=== PATIENT | male | born 1945 ===

== ENCOUNTER 2017-06-14 05:16 | Day surgery (SDC) | payer MEDICARE, MEDICAID ==
--- NOTE | 2017-06-13 17:19 | Pre-Procedure Note/Attestation ---
Pre-Procedure Note/Attestation Complete Prior to Procedure Planned Procedure: right Procedure Narrative: 1. CATARACT EXTRACTION WITH PHACO AND PC IOL IMPLANTATION, RIGHT EYE. 2. LIMBAL RELAXING INCISION, RIGHT EYE 3.MALYUGIN RING INSERTION, RIGHT EYE FOR FLOPPY IRIS SYNDROME. 4.COMPLEX CATARACT , RIGHT EYE Indications for Procedure Pre-Operative Diagnosis: 1. CATARACT ,RIGHT EYE. 2. ASTIGMATISM, RIGHT EYE. 3. FLOPPY IRIS SYNDROME, RIGHT EYE 4. COMPLEX CATARACT , RIGHT EYE. Attestation I attest that I discussed the nature of the procedure; its benefits; risks and complications; and alternatives (and the risks and benefits of such alternatives ), prior to the procedure, with the patient (or the patient's legal outside energy sales representatives). I attest that, if there was a reasonable possibility of needing a blood transfusion, the patient (or the patient's legal outside energy sales representatives) was given the [facility] standardized written summary, pursuant to the Mike David Blood Safety Act ([place] Health and Safety Code # 1645, as amended). I attest that I re-evaluated the patient just prior to the surgery and that there has been no change in the patient's H&P, except as documented below: MIRIAM PEOPLES Jun 13, 2017 17:19
[2017-06-14] VITALS (11 sets, daily range): BP systolic 125–150; BP diastolic 60–73
[~2017-06-14] VITALS: Ht 172.7 cm; Wt 99.8 kg
[~2017-06-14 05:16] MED LIST: ASPIR 8181 MG ORAL; ATORVASTATIN CA10 MG ORAL; HYTRIN5 MG PO; LOSARTAN POTASS50 MG ORAL; SERTRALINE HCL25 MG ORAL; TAMSULOSIN HCL0.4 MG ORAL
[2017-06-14] MEDS ORDERED: Vigamox Opth Soln 3ml ONE (05:29)
[2017-06-14] MEDS ORDERED: Phenylephrine 10% Opth Soln 5ml ONE (05:29)
[2017-06-14] MEDS ORDERED: Ketorolac Tromethamine Opth 5ml Soln ONE (05:29)
[2017-06-14] MEDS ORDERED: Tropicamide 1% Opth 15ml Soln ONE (05:29)
[2017-06-14] MEDS ORDERED: Akten 3.5% 1ml Btl ONE (05:29)
[2017-06-14] MEDS: Ketorolac Tromethamine Opth 5ml Soln RIGHT EYE SCH ×3 (05:52→06:28)
[2017-06-14] MEDS: Vigamox Opth Soln 3ml RIGHT EYE SCH ×3 (05:53→06:28)
[2017-06-14] MEDS: Tropicamide 1% Opth 15ml Soln RIGHT EYE SCH ×3 (05:53→06:27)
[2017-06-14] MEDS: Akten 3.5% 1ml Btl RIGHT EYE SCH ×3 (05:53→06:28)
[2017-06-14] MEDS: Phenylephrine 10% Opth Soln 5ml RIGHT EYE SCH ×3 (05:53→06:28)
[2017-06-14] MEDS ORDERED: acetaZOLAMIDE 125mg tab ORAL ONE (06:00)
[2017-06-14] MEDS ORDERED: NS Irrig 1000ml ONE (07:00)
[2017-06-14] MEDS ORDERED: fentaNYL 100 mcg/2 mL IV ONE (07:00)
[2017-06-14] MEDS ORDERED: Propofol 200mg/20ml IV ONE (07:00)
[2017-06-14] MEDS ORDERED: LR 1000ml ONE (07:00)
[2017-06-14] MEDS ORDERED: Sterile Water Irrig 1000ml IRRIG ONE (07:00)
[2017-06-14] MEDS ORDERED: Midazolam 2mg/2ml Inj ONE (07:00)
[2017-06-14] MEDS ORDERED: BSS 500ml btl ONE (07:02)
[2017-06-14] MEDS ORDERED: Tetracaine 0.5% Opth 4ml Soln ONE (07:02)
[2017-06-14] MEDS ORDERED: Lidocaine 1% MPF 10mg/ml 5ml ONE (07:02)
[2017-06-14] MEDS ORDERED: Dexamethasone 4mg/ml vial ONE (07:02)
[2017-06-14] MEDS ORDERED: Sodium Hyaluronate 10 mg/ml 0.85ml ONE (07:03)
[2017-06-14] MEDS ORDERED: Carbachol 0.01% Op Soln 1.5ml vial ONE (07:03)
[2017-06-14] MEDS ORDERED: BSS 15ml BTL ONE (07:03)
[2017-06-14] MEDS ORDERED: EPINEPHrine 1mg/1ml Amp ONE (07:03)
[2017-06-14] MEDS ORDERED: Povidone-Iodine 5% opth solution ONE (07:03)
[2017-06-14] MEDS ORDERED: LR 1000ml 1,000 ML IVLG SCH (07:53)
--- NOTE | 2017-06-14 07:53 | Anethesia Preoperative Eval ---
Anesthesia Pre-op PMH/ROS General Date of Evaluation: Jun 14, 2017 Time of Evaluation: 07:20 Anesthesiologist: Reena ASA Score: ASA 2 Mallampati Score Class I : Soft palate, uvula, fauces, pillars visible Class II: Soft palate, uvula, fauces visible Class III: Soft palate, base of uvula visible Class IV: Only hard plate visible Mallampati Classification: Class II Surgeon: Gino Diagnosis: R eye cataract Surgical Procedure: R eye catarat extraction Anesthesia History: none Family History: no anesthesia problems Allergies: Coded Allergies: No Known Allergies (Unverified , 06/13/17) Medications: see eMAR Past Medical History Cardiovascular: Reports: HTN, Denies: CAD, [place], valve dz, arrhythmia, other Pulmonary: Denies: asthma, COPD, [place]ESM[place], other Gastrointestinal/Genitourinary: Reports: GERD, other - BPH, Denies: CRI, ESRD Neurologic/Psychiatric: Reports: depression/anxiety, Denies: dementia, CVA, TIA, other Endocrine: Denies: DM, hypothyroidism, steroids, other HEENT: Reports: cataract (L), cataract (R), Denies: glaucoma, [place] (L), [place] (R), other Hematology/Immune: Denies: anemia, DVT, bleeding disorder, other Musculoskeletal/Integumentary: Reports: DJD, Denies: OA, RA, DDD, edema, other Other: obesity PMH Narrative: as above PSxH Narrative: Hemorrhoids, cholecystectomy, L knee arthroplasty Anesthesia Pre-op Phys. Exam Physician Exam Last Vital Signs Date Time Temp Pulse Resp B/P (MAP) Pulse Ox O2 Delivery O2 Flow Rate FiO2 06/14/17 06:33 97.9 63 18 144/73 97 Room Air Constitutional: NAD Neurologic: CN 2-12 intact Cardiovascular: RRR, no M/R/G Respiratory: CTA Gastrointestinal: S/NT/ND Airway Exam Mallampati Score: Class II MO: full Neck: stiff ROM: limited Teeth: missing Dentures: no upper, no lower Anesthesia Pre-op A/P Labs See chart Studies Pre-op Studies: EKG - NSR Risk Assessment & Plan Assessment: ASA 2 Plan: MAC Status Change Before Surgery: No Pre-Antibiotics Drug: none PATEL GALLEGOS M.D. Jun 14, 2017 07:52
[2017-06-14] MEDS ORDERED: fentaNYL 100 mcg/2 mL IV PRN (08:00)
[2017-06-14] MEDS ORDERED: DiphenhydrAMINE 50mg/ml Inj IVP PRN (08:00)
--- NOTE | 2017-06-14 08:33 | Discharge Summary ---
Discharge Summary Discharge Summary Discharge Summary DATE OF ADMISSION: 06/14/2017 DATE OF DISCHARGE: 06/14/2017 REASON FOR HOSPITALIZATION: 1- cataract right eye 2- Floppy Iris syndrome 3- Complex cataract, right eye SURGERY PERFORMED: 1- Cataract extraction, right eye 2- Malyugin ring insertion , right eye 3- Complex cataract removal, right eye CONDITION IN THE HOSPITAL:The patient tolerated the surgery without complications. DISCHARGE CONDITION: The patient was stable at discharge. DISCHARGE MEDICATIONS: 1. Vigamox eye drops one drop q.i.d, OD 2. Prednisolone one drop q.i.d, OD 3. Acular drop qid, OD POSTOPERATIVE ORDERS: The patient has to rest at home. No bending, No lifting, No watching Television tonight. POSTOPERATIVE FOLLOW UP: The patient will be followed in my office tomorrow morning at 7 o'clock. MIRIAM PEOPLES Jun 14, 2017 08:33
--- NOTE | 2017-06-14 08:36 | Brief Operative Note ---
Immediate Post Operative Note Operative Note Chief Complaint: Blurry vision, right eye, difficulty driving and reading, rght eye Pre-op Diagnosis: 1. CATARACT ,RIGHT EYE. 2. ASTIGMATISM, RIGHT EYE. 3. FLOPPY IRIS SYNDROME, RIGHT EYE 4. COMPLEX CATARACT , RIGHT EYE. Procedure: 1- cataract extraction with phaco and PC IOL implantation, right eye 2- Malyugin ring insertion for treatment floppy iris syndrome 3- Complex Cataract removal, right eye Post-op Diagnosis: same as pre-op Surgeon: Miriam Christian MD. Thread Singer: None Additional Surgeons: None Anesthesiologist: DR. Valles Anesthesia: MAC Specimen: none Complications: none Condition: stable Fluids: 500ml Estimated Blood Loss: none Drains: none Implant(s) used?: Yes - Monofocal PC IOL implanted in the right eye without complication MIRIAM CHRISTIAN Jun 14, 2017 08:36
--- NOTE | 2017-06-14 09:00 | Immediate Post-Op Evaluation ---
Immediate Post-Op Evalulation Immediate Post-Op Evalulation Procedure: R eye cataract extration with IOL Date of Evaluation: Jun 14, 2017 Time of Evaluation: 08:32 IV Fluids: 300 Blood Products: none Estimated Blood Loss: none Urinary Output: none Blood Pressure Systolic: 132 Blood Pressure Diastolic: 64 Pulse Rate: 68 Respiratory Rate: 20 O2 Sat by Pulse Oximetry: 99 Temperature (Fahrenheit): 97.6 Pain Score (1-10): 1 Nausea: No Vomiting: No Complications none Patient Status: awake, patent, none Hydration Status: adequate PATEL GALLEGOS M.D. Jun 14, 2017 09:00
--- NOTE | 2017-06-14 15:02 | 48 Hour Post Anesthesia Eval ---
Post Anesthesia Evaluation Procedure: R eye cataract extration with IOL Date of Evaluation: Jun 14, 2017 Time of Evaluation: 12:30 Blood Pressure Systolic: 148 0: 73 Pulse Rate: 72 Respiratory Rate: 20 Temperature (Fahrenheit): 97.6 O2 Sat by Pulse Oximetry: 98 Airway: patent Nausea: No Vomiting: No Pain Intensity: 1 Hydration Status: adequate Cardiopulmonary Status: stable Mental Status/LOC: patient returned to baseline Follow-up Care/Observations: n/a Post-Anesthesia Complications: none Follow-up care needed: ready to discharge PATEL GALLEGOS M.D. Jun 14, 2017 15:02
--- NOTE | 2017-06-15 05:45 | Operative Note - Dictated ---
DATE OF OPERATION: 06/14/2017 FACILITY: [facility]. SURGEON: Dionisio Christian M.D. LIABILITY CLAIMS EXAMINER: None. ANESTHESIOLOGIST: Dayron Valles M.D. ANESTHESIA: Monitored anesthesia care (MAC). PREOPERATIVE DIAGNOSES: 1. Cataract, right eye. 2. Floppy iris syndrome. 3. Complex cataract. 4. Astigmatism. POSTOPERATIVE DIAGNOSES: 1. Cataract, right eye. 2. Floppy iris syndrome. 3. Complex cataract. 4. Astigmatism. SURGERY PERFORMED: 1. Cataract extraction in the right eye. 2. Insertion of Malyugin ring for treatment of floppy iris syndrome. 3. Limbal relaxing incision (LRI) in the right eye. 4. Complex cataract removal. INDICATION FOR SURGERY: The patient is a 71-year-old gentleman with history of hypertension, hypercholesterolemia, and benign prostatic hypertrophy. The patient is taking Flomax, simvastatin, and medication for high blood pressure, which is named losartan and aspirin. He is complaining of blurred vision in the right eye. He is not allergic to any medication. He is not a drinker or a smoker. On examination of the right eye, the cornea is clear. Anterior chamber is clean and quiet. Pupillary reflex is normal. There is no RAPD. There is 4+ nuclear scleroses and 2+ cortical cataract. Funduscopy shows normal macula, normal optic disk, and periphery retina is flat. To improve his vision in the right eye, the cataract has to be removed and posterior chamber intraocular lens has to be implanted. INFORMED CONSENT: The nature of the surgery, risks, benefits, alternatives, and potential complications were explained in detail to the patient. The potential complications including, but not limited to bleeding, infection, posterior capsular rupture, lens subluxation, flat anterior chamber, iris prolapse, uveitis, wound leakage, corneal edema, macular edema, endophthalmitis, retinal detachment, loss of vision, and even loss of the eye were all explained in detail to the patient. The alternatives including accommodating lens, multifocal lens, toric lens, and conventional cataract surgery with limbal relaxing incision (LRI) for treatment of astigmatism all were explained in detail to the patient, who voiced understanding. The patient elected to have only conventional cataract surgery with limbal relaxing incision for treatment of astigmatism. Then, he signed the consent form, which is in the chart. DESCRIPTION OF SURGERY AND FINDINGS: Following that, the patient was taken to the operation room in stable condition. Lidocaine gel, Akten 3.5% were applied to the conjunctiva of the right eye. IV sedation was given by the anesthesiologist, Dr. Valles. After adequate anesthesia and sedation had been achieved, the right eye was prepped and draped in the sterile fashion for intraocular surgery. Before the patient was taken to the operation room, the cornea was marked at 180 and 90 meridian. In the operation room, using a corneal marker and marking pen, the steep meridian of the cornea was marked. Following that, using a kizzy knife with 600 blade, two parallel incisions were placed on the steep meridian of the cornea for treatment of astigmatism. Following that, using a Super Sharp knife, a clear corneal side port was created. A 1% lidocaine without preservative (MPF) was injected into the anterior chamber. Viscoelastic agent, Healon was injected into the anterior chamber. Following that, using a 2.8 mm keratome, temporal clear corneal keratotomy was performed. Viscoelastic agent, Healon was injected into the anterior chamber again. Following that, a Malyugin ring was inserted into the anterior chamber and coils of the Malyugin ring was engaged with sphincter of the pupil. A kizzy shaped space was created for safe phacoemulsification. Following that, VisionBlue was injected under viscoelastic agent to stain the capsule of the crystalline lens. Following that, a clear fresh viscoelastic agent was injected into the anterior chamber. Under the viscoelastic agent, anterior capsulotomy was performed in the fashion of capsulorrhexis beautifully. Following that, all viscoelastic agent was removed from the anterior chamber. Following that, using balanced salt solution, hydrodissection and hydrodelineation was performed and the nucleus was freed. Following that, viscoelastic agent, Healon was injected into the anterior chamber again to protect the endothelium of the cornea. Following that, using the phacoemulsification machine in the fashion of horizontal chop, the nucleus was removed in toto. Following that, using irrigation aspiration unit, the cortical material was removed from the capsular bag and the capsular bag was polished. Following that, the capsular bag was filled with viscoelastic agent, Healon. Following that, a +15.0 diopter ZCB00 foldable PCIOL with serial number [id number] was injected into the capsular bag. Using a Sinskey hook, the lens was manipulated and put in the proper position. Following that, the viscoelastic agent was removed from the anterior and posterior part of the lens. Following that, the anterior chamber was filled with balanced salt solution and the wound was hydrated. Following that, the wound was checked for leakage and there was no leakage. Vigamox eye drops were applied to the conjunctiva of the right eye. The patient tolerated the surgery without complications. At the end of the surgery, the eye was patched with a clear sterile fenestrated shield. Following that, the patient was transferred to the recovery room. In the recovery room, 125 mg of Diamox was given by mouth stat. Postoperative orders and directions were given to the patient. The patient will be discharged home upon stabilization. The patient will be followed in my office tomorrow morning at 9 o'clock. Dionisio Christian M.D. DR: LATISHA JOB#: [id number] CC:
== END 2017-06-14 09:50 | disposition home or self-care (01) ==
LOC: SUR 05:16
DX: H25.11 Age-related nuclear cataract, right eye (principal); H25.011 Cortical age-related cataract, right eye; H21.81 Floppy iris syndrome; H52.201 Unspecified astigmatism, right eye; I10 Essential (primary) hypertension; E78.00 Pure hypercholesterolemia, unspecified; Z79.82 Long term (current) use of aspirin; F32.9 Major depressive disorder, single episode, unspecified; M17.0 Bilateral primary osteoarthritis of knee; K21.9 Gastro-esophageal reflux disease without esophagitis; E78.5 Hyperlipidemia, unspecified; Z82.49 Family history of ischemic heart disease and other diseases of the circulatory system; Z80.1 Family history of malignant neoplasm of trachea, bronchus and lung; Z82.61 Family history of arthritis; F41.9 Anxiety disorder, unspecified; Z90.49 Acquired absence of other specified parts of digestive tract
CPT/HCPCS: 65772; 66982; J0171; J1100; J2250; J2704; J3010; J7120; V2632; 94003; 94150

== ENCOUNTER 2017-06-28 06:55 | Day surgery (SDC) | payer MEDICARE, MEDICAID ==
--- NOTE | 2017-06-23 14:36 | Pre-Procedure Note/Attestation ---
Pre-Procedure Note/Attestation Complete Prior to Procedure Planned Procedure: left Procedure Narrative: 1. CATARACT EXTRACTION WITH PHACO AND PC IOL IMPLANTATION, LEFT EYE. 2.MALYUGIN RING INSERTION, LEFT EYE FOR FLOPPY IRIS SYNDROME. 3.COMPLEX CATARACT , LEFT EYE Indications for Procedure Pre-Operative Diagnosis: 1. CATARACT ,LEFT EYE. 2. FLOPPY IRIS SYNDROME, LEFT EYE 3. COMPLEX CATARACT , LEFT EYE. Attestation I attest that I discussed the nature of the procedure; its benefits; risks and complications; and alternatives (and the risks and benefits of such alternatives ), prior to the procedure, with the patient (or the patient's legal paper sales representative). I attest that, if there was a reasonable possibility of needing a blood transfusion, the patient (or the patient's legal paper sales representative) was given the [facility] standardized written summary, pursuant to the Mike David Blood Safety Act ([place] Health and Safety Code # 1645, as amended). I attest that I re-evaluated the patient just prior to the surgery and that there has been no change in the patient's H&P, except as documented below: MIRIAM PEOPLES Jun 23, 2017 14:36
[2017-06-28] VITALS (10 sets, daily range): BP systolic 125–149; BP diastolic 62–76
[~2017-06-28] VITALS: Ht 172.7 cm; Wt 99.8 kg
[~2017-06-28 06:55] MED LIST changes: +acetaZOLAMIDE 125mg tab ORAL ONE
--- NOTE | 2017-06-28 07:08 | Anethesia Preoperative Eval ---
Anesthesia Pre-op PMH/ROS General Date of Evaluation: Jun 28, 2017 Anesthesiologist: Tank ASA Score: ASA 2 Mallampati Score Class I : Soft palate, uvula, fauces, pillars visible Class II: Soft palate, uvula, fauces visible Class III: Soft palate, base of uvula visible Class IV: Only hard plate visible Mallampati Classification: Class II Surgeon: Gino Diagnosis: Left cataract Surgical Procedure: Left cataract extraction with IOL Anesthesia History: none Family History: no anesthesia problems Allergies: Coded Allergies: No Known Allergies (Unverified , 06/13/17) Medications: see eMAR Past Medical History Cardiovascular: Denies: HTN, CAD, [place], valve dz, arrhythmia, other Pulmonary: Denies: asthma, COPD, [place], other Gastrointestinal/Genitourinary: Reports: GERD, Denies: CRI, ESRD, other Neurologic/Psychiatric: Reports: depression/anxiety, Denies: dementia, CVA, TIA, other Endocrine: Denies: DM, hypothyroidism, steroids, other HEENT: Reports: cataract (L) Hematology/Immune: Reports: other - lupus, Denies: anemia, DVT, bleeding disorder Musculoskeletal/Integumentary: Reports: OA, Denies: RA, DJD, DDD, edema, other Other: obesity PSxH Narrative: cholecystectomy, left tkr, right cataract Anesthesia Pre-op Phys. Exam Physician Exam see chart Constitutional: NAD Cardiovascular: RRR Respiratory: CTA Airway Exam Mallampati Score: Class II MO: full ROM: full Anesthesia Pre-op A/P Labs see chart Studies Pre-op Studies: EKG - sr Risk Assessment & Plan Assessment: ASA II Plan: MAC Status Change Before Surgery: No Pre-Antibiotics Drug: N/A POOJA DAVIES M.D. Jun 28, 2017 07:08
[2017-06-28] MEDS: Vigamox Opth Soln 3ml LEFT EYE SCH ×3 (07:33→07:56)
[2017-06-28] MEDS: Tropicamide 1% Opth 15ml Soln LEFT EYE SCH ×3 (07:34→07:56)
[2017-06-28] MEDS: Ketorolac Tromethamine Opth 5ml Soln LEFT EYE SCH ×3 (07:34→07:55)
[2017-06-28] MEDS: Phenylephrine 10% Opth Soln 5ml LEFT EYE SCH ×3 (07:34→07:56)
[2017-06-28] MEDS: Akten 3.5% 1ml Btl LEFT EYE SCH ×3 (07:35→07:56)
[2017-06-28] MEDS ORDERED: LR 1000ml 1,000 ML IVLG SCH (08:21)
--- NOTE | 2017-06-28 08:21 | 48 Hour Post Anesthesia Eval ---
Post Anesthesia Evaluation Procedure: Left cataract extraction with IOL Date of Evaluation: Jun 28, 2017 Airway: patent Nausea: No Vomiting: No Pain Intensity: 0 Hydration Status: adequate Cardiopulmonary Status: at baseline Mental Status/LOC: patient returned to baseline Post-Anesthesia Complications: 0 Follow-up care needed: ready to discharge POOJA DAVIES M.D. Jun 28, 2017 08:21
--- NOTE | 2017-06-28 08:21 | Immediate Post-Op Evaluation ---
Immediate Post-Op Evalulation Immediate Post-Op Evalulation Procedure: Left cataract extraction with IOL Date of Evaluation: Jun 28, 2017 Time of Evaluation: 09:24 IV Fluids: 400 Blood Products: 0 Estimated Blood Loss: 0 Urinary Output: 0 Blood Pressure Systolic: 153 Blood Pressure Diastolic: 81 Pulse Rate: 57 Respiratory Rate: 16 O2 Sat by Pulse Oximetry: 95 Temperature (Fahrenheit): 97.9 Pain Score (1-10): 0 Nausea: No Vomiting: No Complications 0 Patient Status: awake, reacts, patent, none Hydration Status: adequate Drug: N/A POOJA DAVIES M.D. Jun 28, 2017 08:21
[2017-06-28] MEDS ORDERED: DiphenhydrAMINE 50mg/ml Inj IVP PRN (08:30)
[2017-06-28] MEDS ORDERED: Propofol 200mg/20ml IV ONE (08:30)
[2017-06-28] MEDS ORDERED: Midazolam 2mg/2ml Inj ONE (08:30)
[2017-06-28] MEDS ORDERED: fentaNYL 100 mcg/2 mL IV ONE (08:30)
[2017-06-28] MEDS ORDERED: Sterile Water Irrig 1000ml IRRIG ONE (08:30)
[2017-06-28] MEDS ORDERED: NS Irrig 1000ml ONE (08:30)
[2017-06-28] MEDS ORDERED: Lidocaine 1% MPF 10mg/ml 5ml ONE ×2 (08:30→10:35)
[2017-06-28] MEDS ORDERED: LR 1000ml ONE (08:30)
[2017-06-28] MEDS ORDERED: DiphenhydrAMINE 50mg/ml Inj ONE (08:30)
--- NOTE | 2017-06-28 09:24 | Discharge Summary ---
Discharge Summary Discharge Summary Discharge Summary DATE OF ADMISSION: 06/28/2017 DATE OF DISCHARGE: 06/28/2017 REASON FOR HOSPITALIZATION: 1- cataract, left eye 2- Floppy iris syndrome 3- Complex cataract, left eye SURGERY PERFORMED: 1- Cataract extraction 2- Mlyugin ring insertion 3- [place] cataract extraction, left eye CONDITION IN THE HOSPITAL:The patient tolerated the surgery without complications. DISCHARGE CONDITION: The patient was stable at discharge. DISCHARGE MEDICATIONS: 1. Vigamox eye drops one drop q.i.d, OS 2. Prednisolone one drop q.i.d, OS 3- Acular one drop qid, OS POSTOPERATIVE ORDERS: The patient has to rest at home. No bending, No lifting, No watching Television tonight. POSTOPERATIVE FOLLOW UP: The patient will be followed in my office tomorrow morning at 7 o'clock. MIRIAM PEOPLES Jun 28, 2017 09:24
--- NOTE | 2017-06-28 09:29 | Brief Operative Note ---
Immediate Post Operative Note Operative Note Chief Complaint: Blurry vision, left eye. Difficulty driving and reading, left eye Pre-op Diagnosis: 1. CATARACT ,LEFT EYE. 2. FLOPPY IRIS SYNDROME, LEFT EYE 3. COMPLEX CATARACT , LEFT EYE. Procedure: 1- Cataract extraction with phaco and PC IOl implantation, left eye 2- Malyugin ring insertion for treatment floppy iris syndrome, left eye 3- Complex cataract removed, left eye Post-op Diagnosis: same as pre-op Surgeon: Miriam Christian MD. Marketing Director Assisted Living: None Additional Surgeons: None Anesthesiologist: Dr. Fu Anesthesia: MAC Specimen: none Complications: none Condition: stable Fluids: 500ml Estimated Blood Loss: none Drains: none Implant(s) used?: Yes - Monofocal PC IOl implanted in the left eye without complication MIRIAM CHRISTIAN Jun 28, 2017 09:29
[2017-06-28] MEDS ORDERED: BSS 15ml BTL ONE (09:32)
[2017-06-28] MEDS ORDERED: BSS 500ml btl ONE (09:32)
[2017-06-28] MEDS ORDERED: Sodium Hyaluronate 10 mg/ml 0.85ml ONE (09:33)
[2017-06-28] MEDS ORDERED: Dexamethasone 4mg/ml vial ONE (10:35)
[2017-06-28] MEDS ORDERED: EPINEPHrine 1mg/1ml Amp ONE (10:36)
[2017-06-28] MEDS ORDERED: Povidone-Iodine 5% opth solution ONE (10:36)
--- NOTE | 2017-06-28 15:15 | Pre-op HX & Phy Repo 2 SIG ---
DATE OF ADMISSION: 06/28/2017 PRESURGICAL INTERNAL MEDICINE HISTORY AND PHYSICAL REASON FOR EVALUATION: I was asked by Dr. Dionisio Christian to see this 71-year-old male, who is going for elective surgery on the left eye. The patient has a cataract left eye. Please see History and Physical by Dr. Dionisio Christian. The patient was examined. Chart was reviewed. PAST MEDICAL HISTORY/REVIEW OF SYSTEMS: Remarkable for history of hypertension, benign prostatic hypertrophy, skin lupus. Denies history of heart attack, chest pain, or palpitation. No history of diabetes or thyroid problem. No history of stroke or seizures. No Parkinson disease. Denies history of renal failure. No thyroid problem. Occasional heartburn. PAST SURGICAL HISTORY: Right eye cataract and cholecystectomy 20 years ago. FAMILY HISTORY: Father from lung cancer at age of 96 and mother from old age. ALLERGIES: Not known. MEDICATIONS: Present medications include losartan, Flomax, vitamin D, calcium, and baby aspirin. HABITS: Denies history of smoke or alcohol habits. No street drugs. PHYSICAL EXAMINATION: GENERAL: Alert, well-developed, well-nourished male, in his 70s. No acute distress. VITAL SIGNS: Blood pressure 145/90, temperature 97, pulse 55 regular, and O2 saturation 99% on room air. SKIN: Warm, clear, and dry. No rashes. LYMPHATIC: Lymph nodes not enlarged. HEENT: Head, normocephalic and atraumatic. Ears, clear. Eyes, full description per Dr. Dionisio Christian. Mouth, clear and moist. No dentures. NECK: Supple. No jugular vein distention. Carotids artery +2. Trachea midline. CHEST: No deformity or asymmetry. LUNGS: Clear. No rales or rhonchi. HEART: Sinus rhythm, bradycardia. No murmur. No S3, S4. ABDOMEN: Soft, benign. Liver and spleen are not enlarged. No rebound. EXTREMITIES: No edema. No calf tenderness. No varicose veins. GENITOURINARY: CVA nontender. History of benign prostatic hypertrophy and . NERVOUS SYSTEM: No asymmetry. No tremor. No nystagmus. DIAGNOSTIC AND LABORATORY DATA: Electrocardiogram, normal sinus rhythm, bradycardia. The patient did not eat or drink from 8 p.m. yesterday. Laboratory work pending. IMPRESSION: 1. Cataract, left eye. 2. Hypertension, controlled. 3. Benign prostatic hypertrophy. 4. History of lupus skin form. 5. Degenerative joint disease, knee. PLAN: Cataract extraction with intraocular lens implant of left eye per Dr. Dionisio Christian. CONCLUSION: The patient is a 71-year-old, his vital signs stable. The patient did not eat or drink from last night. The patient's condition optimized for surgery. Thank you very much, Dr. Christian, for the privilege to participate in the presurgical care of this interesting patient. Alison Coppola M.D. DR: MARIANNE JOB#: [id number] CC:
--- NOTE | 2017-06-28 17:30 | Pre-op HX & Phy Repo 2 SIG ---
DATE OF ADMISSION: 06/28/2017 NOTE: CANCELED DICTATION PRESURGICAL INTERNAL MEDICINE HISTORY AND PHYSICAL REASON FOR EVALUATION: I was asked by Dr. Dionisio Christian to see this 71-year-old male, who is going for elective surgery on the left eye. The patient has a cataract, left eye. Please see full description by Dr. Dionisio Christian. The patient was examined. Chart was reviewed. PAST MEDICAL HISTORY/REVIEW OF SYSTEMS: Remarkable for coronary heart disease and coronary artery bypass surgery, three stents in 2010. Denies history of heart attack. No history of hypertension. The patient has a history of hypothyroidism. No diabetes mellitus. Denies history of renal failure or prostate problem. No history of GI bleeding. History of old gastritis and B12 deficiency about 20 years ago with anemia. No history of stroke or hypertension. No respiratory problem, asthma, or bronchitis. No history of arthritis. FAMILY HISTORY: Mother from Alzheimer disease and father from complication of flu. MEDICATIONS: Present medications include sotalol, isosorbide, vitamin D and calcium supplements, and levothyroxine. ALLERGIES: Not known. HABITS: The patient smoked for about four years 40 years ago. Denies alcohol or street drug use. PHYSICAL EXAMINATION: GENERAL: Alert, well-developed, well-nourished male, in his 70s, in no acute distress. VITAL SIGNS: Blood pressure 145/70, temperature 97, pulse 65, respirations 20, and O2 saturation 99% on room air. SKIN: Dry and warm. INCOMPLETE DICTATION. Alison Coppola M.D. DR: MARIANNE JOB#: [id number] CC:
--- NOTE | 2017-06-28 18:45 | Operative Note - Dictated ---
DATE OF OPERATION: 06/28/2017 FACILITY: [facility]. SURGEON: Dionisio Christian M.D. STRIP POLISHER: None. ANESTHESIOLOGIST: Dr. Fu. ANESTHESIA: Monitored anesthesia care (MAC). PREOPERATIVE DIAGNOSES: 1. Cataract, left eye. 2. Floppy iris syndrome, left eye. 3. Complex cataract, left eye. 4. Astigmatism, left eye. POSTOPERATIVE DIAGNOSES: 1. Cataract, left eye. 2. Floppy iris syndrome, left eye. 3. Complex cataract, left eye. 4. Astigmatism, left eye. SURGERY PERFORMED: 1. Cataract extraction with phacoemulsification in the left eye. 2. Insertion of Malyugin ring for treatment of floppy iris syndrome in the left eye. 3. Limbal relaxing incision (LRI) in the left eye 4. Complex cataract removal, left eye. INDICATION FOR SURGERY: The patient is a 71-year-old gentleman with history of hypertension, hypercholesterolemia, benign prostatic hypertrophy. The patient is taking Flomax, simvastatin, and Diovan for high blood pressure, and losartan and aspirin. He is complaining of blurred vision in the left eye. He has had cataract surgery in the right eye and he is happy with the result. He is not allergic to any medications. He is not a drinker or a smoker. On examination of the left eye, the cornea is clear. Anterior chamber is clean and quiet. Pupillary reflex is normal. There is no RAPD. There is 4+ nuclear sclerosis and 2+ cortical cataract. Funduscopy shows normal macula, normal optic disk, and periphery retina is flat. To improve his vision in the left eye, the cataract has to be removed and posterior chamber intraocular lens has to be implanted. INFORMED CONSENT: The nature of the surgery, risks, benefits, alternatives, and potential complications were explained all in detail to the patient. The potential complications including, but not limited to bleeding, infection, posterior capsular rupture, lens subluxation, flat anterior chamber, iris prolapse, uveitis, wound leakage, corneal edema, macular edema, endophthalmitis, retinal detachment, loss of vision, and even loss of the eye were all explained in detail to the patient. The alternatives including accommodating lens, multifocal lens, toric lens, and conventional cataract surgery with limbal relaxing incision (LRI) for treatment of astigmatism all were explained in detail to the patient who voiced understanding. The patient elected to have only conventional cataract surgery with limbal relaxing incision for treatment of astigmatism. Then, he signed the consent form, which is in the chart. DESCRIPTION OF SURGERY AND FINDINGS: Following that, the patient was taken to the operation room in a stable condition. Lidocaine gel, Akten 3.5% were applied to the conjunctiva of the left eye. IV sedation was given by the anesthesiologist, Dr. Fu. After adequate anesthesia and sedation had been achieved, the left eye was prepped and draped in the sterile fashion for intraocular surgery. Before the patient was taken to the operation room, the cornea was marked at 180 and 90 meridian. In the operation room, using a corneal marker and marking pen, the steep meridian of the cornea was marked. Following that, using a kizzy knife with 600 blade, two parallel incisions were placed on the steep meridian of the cornea for treatment of the astigmatism. Following that, using a Super Sharp knife, a clear corneal side port was created. A 1% lidocaine without preservative (MPF) was injected into the anterior chamber. Viscoelastic agent Healon was injected into the anterior chamber. Following that, using a 2.8 mm keratome, temporal clear corneal keratotomy was performed. Viscoelastic agent, Healon was injected into the anterior chamber again. Following that, a Malyugin ring was inserted into the anterior chamber and the coils of the Malyugin ring was engaged with sphincter of the pupil. A kizzy shaped space was created for safe phacoemulsification. Following that, an anterior capsulotomy was performed under the viscoelastic agent. Following that, anterior capsulotomy was performed in the fashion of capsulorrhexis beautifully. Following that, all viscoelastic agent was removed from the anterior chamber. Following that, using balanced salt solution, hydrodissection and hydrodelineation was performed and the nucleus was freed. Following that, viscoelastic agent, Healon, was injected into the anterior chamber again to protect the endothelium of the cornea. Following that, using the phacoemulsification machine in the fashion of horizontal chop, the nucleus was removed in toto. Following that, using irrigation and aspiration unit, the cortical material was removed from the capsular bag and the capsular bag was polished. Following that, the capsular bag was filled with viscoelastic agent, Healon. Following that, a +14.5 diopter ZCB00 foldable PC IOL with serial number [id number] was inserted into the capsular bag. Using a Sinskey hook, the lens was manipulated within the proper position. Following that, with the use of aspiration unit, the viscoelastic material was removed from the anterior posterior part of the lens and anterior chamber was filled with balanced salt solution. Following that, the wound was hydrated with balanced salt solution. The wound was checked for leakage and there was no leakage. Vigamox eye drops were applied to the conjunctiva of the left eye. The patient tolerated the surgery without complications. At the end of the surgery, the eye was patched with a clear sterile fenestrated shield. Following that, the patient was transferred to the recovery room. In the recovery room, 125 mg Diamox was given by mouth stat. Postoperative orders and directions were given to the patient. The patient will be discharged home upon stabilization. The patient will be followed in my office tomorrow morning at 9 o'clock. Dionisio Christian M.D. DR: Mckenzie JOB#: [id number] CC:
== END 2017-06-28 11:00 | disposition home or self-care (01) ==
LOC: SUR 06:55
DX: H25.12 Age-related nuclear cataract, left eye (principal); H25.012 Cortical age-related cataract, left eye; H52.202 Unspecified astigmatism, left eye; H21.81 Floppy iris syndrome; Z79.82 Long term (current) use of aspirin; I10 Essential (primary) hypertension; E78.00 Pure hypercholesterolemia, unspecified; K21.9 Gastro-esophageal reflux disease without esophagitis; F41.9 Anxiety disorder, unspecified; F32.9 Major depressive disorder, single episode, unspecified; M19.90 Unspecified osteoarthritis, unspecified site; Z90.49 Acquired absence of other specified parts of digestive tract; Z96.652 Presence of left artificial knee joint
CPT/HCPCS: 65772; 66982; J0171; J1100; J1200; J2250; J2704; J3010; J7120; V2632; 94003; 94150